=== PATIENT | female | born 1955 | race Caucasian/White ===

== ENCOUNTER → 2018-03-20 | Outpatient (CLI) | payer MEDICARE ==
--- NOTE | 2018-03-20 22:41 | MR ---
EXAMINATION TYPE: MR lumbar spine wo con DATE OF EXAM: 03/20/2018 COMPARISON: NONE HISTORY: back, hip and leg pain x6 months per patient. Lumbar radiculopathy per order. TECHNIQUE: Multiplanar, multisequence imaging of the lumbar spine is performed without IV contrast. FINDINGS: Sagittal images of the lumbar spine show vertebral body heights to appear satisfactory. The re are bilateral pars defects L5 level. There is grade 1 anterolisthesis of L5 on S1 measured 6 mm on sagittal images. Multilevel disc desiccation is present. There is mild to moderate disc space narro wing with vacuum disc phenomenon L5-S1 level, heterogeneous Modic type II endplate changes are seen. There is moderate to advanced disc space narrowing with Modic type II degenerative endplate changes a nteriorly at T11-T12 level. Posterior disc herniations efface the anterior thecal sac at this level o n sagittal images. The conus medullaris is normal in position and signal ending T12-L1 disc space. No significant spurring is seen. Axial images beginning at the T11-T12 level which show [id number] broad disc bulge effacing the anterior thecal sac with mild facet arthropathy bilaterally minimally effacing posterior lateral the sita sac. Bilateral neural foramina are patent. Axial images at T12-L1 show mild facet degenerative changes bilaterally minimally effacing posterior lateral thecal sac. Axial images at the L1-L2, L2-L3, and L3-L4 levels are felt to within normal limits. Axial images at the L4-L5 show mild right greater than left facet degenerative changes bilaterally. T here is mild broad-based posterior disc protrusion seen minimally effacing the anterior thecal sac. B ilateral neural foramina show mild right-sided inferior neural foraminal narrowing. Axial images at L5-S1 level shows spondylolisthesis with pseudodisc herniation. There is mild effacem ent of anterior thecal sac. There is moderate bilateral inferior neural foraminal narrowing. No suspicious retroperitoneal findings are identified. IMPRESSION: Bilateral pars defect L5 level with grade 1 anterolisthesis of L5 on S1 and multilevel de generative changes most prominent at the T11-T12 level as detailed above.
== END | disposition home or self-care (01) ==
LOC: RADMRIMAIN 18:06
PROVIDERS: ATTEND Internal Medicine Rheumatology
DX: M43.17 Spondylolisthesis, lumbosacral region (principal); M47.816 Spondylosis without myelopathy or radiculopathy, lumbar region; M47.815 Spondylosis without myelopathy or radiculopathy, thoracolumbar region
CPT/HCPCS: 72148

== ENCOUNTER → 2018-07-05 | Outpatient (CLI) | payer MEDICARE | END | disposition home or self-care (01) | LOC: LABWHC1 11:35 | PROVIDERS: ATTEND Family Medicine | DX: E87.6 Hypokalemia (principal) | CPT/HCPCS: 36415; 84132 ==

== ENCOUNTER → 2018-07-18 | Outpatient (CLI) | payer MEDICARE ==
[2018-07-18 23:28] LABS: Anion Gap 9.4 mmol/L (4.00-12.00); Calcium 9.5 mg/dL (8.7-10.3); Carbon Dioxide 25.6 mmol/L (21.6-31.8); Potassium 3.7 mmol/L (3.5-5.5)
== END | disposition home or self-care (01) ==
LOC: LABWHC1 15:40
PROVIDERS: ATTEND Family Medicine
DX: Z51.81 Encounter for therapeutic drug level monitoring (principal); Z79.899 Other long term (current) drug therapy
CPT/HCPCS: 36415; 80048

== ENCOUNTER → 2018-07-28 | Outpatient (CLI) | payer MEDICARE ==
--- NOTE | 2018-07-28 12:29 | BD ---
EXAMINATION TYPE: Axial Bone Density DATE OF EXAM: 07/28/2018 COMPARISON: NONE CLINICAL HISTORY: Postmenopausal female. Osteoporosis screening. Height: 63.2 IN Weight: 245 LBS FRAX RISK QUESTIONS: Family History (Parent hip fracture): YES MOTHER History of Fracture in Adulthood: LT WRIST AGE 53 Secondary Osteoporosis: 3. Menopause before 45: YES AGE 34 Rheumatoid Arthritis: YES RISK FACTORS HISTORY OF: History of Wrist Fracture: YES LEFT WRIST AGE 51 Active: YES Diet low in dairy products/other sources of calcium: YES Postmenopausal woman: AGE 34 MEDICATIONS: Additional Medications: MULTI VIT, LOSARTAN, BLOOD PRESSURE MEDS, KRILL OIL, VIT D, TURMERIC, FAMOTID INE, OMEPRAZOLE, TIZANIDINE, NIFEDIPINE, GABAPENTIN, VENTOLIN EXAM MEASUREMENTS: Bone mineral densitometry was performed using the [employer] [employer] [facility]. Bone mineral density as measured about the Lumbar spine is: ----- L1-L4(G/cm2): 1.048 T Score Values are as follows: ----- L2: -1.3 ----- L3: -0.8 ----- L4: -1.1 ----- L1-L4: -1.1 Bone mineral density BASELINE Bone mineral density about the R hip (g/cm2): 0.866 Bone mineral density about the L hip (g/cm2): 0.789 T Score values are as follows: -----R Neck: -1.2 -----L Neck: -1.8 -----R Total: -0.2 -----L Total: -0.7 Bone mineral density BASELINE IMPRESSION: Osteopenia (T Score between -2.5 and -1). There is slightly increased risk of fracture and the patient may be considered for treatment. Re-Screen 2-5 years. NOTE: T-SCORE=SD OF THE YOUNG ADULT MEAN.
--- NOTE | 2018-07-31 11:40 | MM ---
Reason for exam: screening (asymptomatic). Last mammogram was performed 8 years and 4 months ago. History: Patient is postmenopausal. Took estrogen for 2 years. Physical Findings: A clinical breast exam by your physician is recommended on an annual basis and results should be correlated with mammographic findings. MG Screening Mammo w CAD Bilateral CC and MLO view(s) were taken. XCCL view(s) were taken of the right breast. Prior study comparison: April 09, 2010, bilateral digital screening mammogram. December 15, 1999, bilateral screening mammogram. The breast tissue is heterogeneously dense. This may lower the sensitivity of mammography. There is no discrete abnormality. No significant changes when compared with prior studies. ASSESSMENT: Benign, BI-RAD 2 RECOMMENDATION: Routine screening mammogram of both breasts in 1 year.
== END | disposition home or self-care (01) ==
LOC: RADMAMWWP 10:10
PROVIDERS: ATTEND Family Medicine
DX: Z12.31 Encounter for screening mammogram for malignant neoplasm of breast (principal); M85.851 Other specified disorders of bone density and structure, right thigh; M85.852 Other specified disorders of bone density and structure, left thigh; M85.88 Other specified disorders of bone density and structure, other site; Z78.0 Asymptomatic menopausal state
CPT/HCPCS: 77067; 77080

== ENCOUNTER 2018-08-23 10:21 | Day surgery (SDC) | payer MEDICARE ==
[2018-08-21 13:29] VITALS: BMI 38.7
[~2018-08-23 10:21] MED LIST: LACTATED RINGERS 1,000 ML IV SCH
[2018-08-23 10:56] VITALS: TEMP 97.7
[2018-08-23] MEDS ORDERED: PROPOFOL 10 MG/ML 20 ML VIAL IV ONE (11:42)
--- NOTE | 2018-08-23 12:09 | P.PCN ---
Date of Procedure: 08/23/18 Procedure(s) Performed: Brief history: Patient is a pleasant 63-year-old white female, scheduled for an elective upper endoscopy as well as colonoscopy as a part of evaluation of GERD/intermittent dysphagia to solids and screening for colon neoplasia. Her last colonoscopy was 10 years ago. Procedure performed: Esophagogastroduodenoscopy with biopsy Colonoscopy with snare polypectomy Preoperative diagnosis: GERD/intermittent dysphagia to solids Screening for colon cancer Anesthesia: [facility] Procedure: After informed consent was obtained from the patient was brought into the endoscopy unit and IV sedation was administered by anesthesia under continuous monitoring. Initially upper endoscopy was done. The Olympus GF 160 video endoscope was inserted inserted into the mouth and esophagus intubated without any difficulty and was gradually advanced into the stomach and duodenum and carefully examined. The bulb and second part of the duodenum appeared normal. The scope was then withdrawn into the stomach adequately insufflated with air and upon careful examination the antrum and body, cardia and fundus appeared normal. Multiple gastric polyps noted in the body and fundus which were biopsied. The scope was then withdrawn into the esophagus. Small sliding Hiatal hernia noted. The GE junction was located at 36 cm to the incisors. It appeared regular with no erythema erosions or ulcerations. Rest of the esophagus appeared normal. Patient tolerated the procedure well. At this time the patient continued to remain sedation. Initial digital rectal examination was normal. Olympus CF 160 video colonoscope was then inserted into the rectum and gradually advanced to the cecum without any difficulty. Careful examination was performed as the scope was gradually being withdrawn. The prep was excellent. The cecum, ascending colon, transverse colon appeared normal. In the descending colon there was a 7-8 mm sessile polyp removed by snare polypectomy. Rest of the, descending colon, sigmoid colon and rectum appeared normal. Scattered sigmoid diverticulosis Retroflexion was performed in the rectum and no lesions were noted. Patient tolerated the procedure well. Impression: 1. Upper endoscopy revealed small hiatal hernia and multiple gastric polyps 2. Colonoscopy revealed of 7-8 mm descending colon polyp status post polypectomy and scattered sigmoid diverticulosis Recommendations: Findings of this examination were discussed with the patient as well as her family. She was advised to follow with the biopsy results. If the biopsy shows adenoma, she can have a repeat colonoscopy in 5 years.
[2018-08-23 12:36] VITALS: BP 139/68; PULSE 75; RESP 17
== END 2018-08-23 13:27 | disposition home or self-care (01) ==
LOC: ORWHC2ENDO 10:21
PROVIDERS: ATTEND Internal Medicine Gastroenterology
DX: Z12.11 Encounter for screening for malignant neoplasm of colon (principal); K21.9 Gastro-esophageal reflux disease without esophagitis; D12.4 Benign neoplasm of descending colon; K31.7 Polyp of stomach and duodenum; K44.9 Diaphragmatic hernia without obstruction or gangrene; K57.30 Diverticulosis of large intestine without perforation or abscess without bleeding; I10 Essential (primary) hypertension; Z79.899 Other long term (current) drug therapy; Z88.4 Allergy status to anesthetic agent; Z88.0 Allergy status to penicillin
CPT/HCPCS: 88305; 45385; 43239; J2704

== ENCOUNTER → 2019-03-27 | Outpatient (CLI) | payer MEDICARE ==
--- NOTE | 2019-03-28 11:47 | ECHOF ---
Referral Reason:R94.31 Abnormal electrocardiogram [ECG] [EKG] MEASUREMENTS -------- HEIGHT: 165.1 cm WEIGHT: 113.4 kg BP: RVIDd: 4.6 cm (< 3.3) IVSd: 1.3 cm (0.6 - 1.1) LVIDd: 4.9 cm (3.9 - 5.3) LVPWd: 1.6 cm (0.6 - 1.1) IVSs: 2.1 cm LVIDs: 2.9 cm LVPWs: 1.8 cm LAESV Index (A-L): 44.65 ml/m Ao Diam: 3.3 cm (2.0 - 3.7) AV Cusp: 2.3 cm (1.5 - 2.6) LA Diam: 4.8 cm (2.7 - 3.8) EPSS: 1.2 cm MV E Wood: 0.94 m/s MV DecT: 248 ms MV A Wood: 0.73 m/s MV E/A Ratio: 1.29 RAP: 5.00 mmHg RVSP: 48.58 mmHg MV EF SLOPE: 118.79 mm/s (70 - 150) MV EXCURSION: 2.10 cm (> 18.000) FINDINGS -------- Sinus rhythm. This was a technically good study. The left ventricular size is normal. There is moderate concentric left ventricular hypertrophy. O verall left ventricular systolic function is normal with, an EF between 65 - 70 %. Pseudonormal LV filling pattern, consistent with elevated LA pressure. The right ventricle is moderate to severely enlarged. LA is severely dilated >40 ml/m2 RA appears enlarged. Interatrial and interventricular septum intact. The aortic valve is trileaflet and appears structurally normal. There is no evidence of aortic regu rgitation. There is no evidence of aortic stenosis. Moderate mitral regurgitation is present. Moderate tricuspid regurgitation present. There is moderate pulmonary hypertension. The right jennifer tricular systolic pressure, as measured by Doppler, is 48.58mmHg. Trace/mild (physiologic) pulmonic regurgitation. The aortic root size is normal. The inferior vena cava is mildly dilated. There is no pericardial effusion. CONCLUSIONS -------- 1. Sinus rhythm. 2. This was a technically good study. 3. The left ventricular size is normal. 4. There is moderate concentric left ventricular hypertrophy. 5. Overall left ventricular systolic function is normal with, an EF between 65 - 70 %. 6. Pseudonormal LV filling pattern, consistent with elevate LA pressure. 7. The right ventricle is moderate to severely enlarged. 8. LA is severely dilated >40 ml/m2 9. RA appears enlarged. 10. Interatrial and interventricular septum intact. 11. The aortic valve is trileaflet and appears structurally normal. 12. There is no evidence of aortic regurgitation. 13. There is no evidence of aortic stenosis. 14. Moderate mitral regurgitation is present. 15. Moderate tricuspid regurgitation present. 16. There is moderate pulmonary hypertension. 17. The right ventricular systolic pressure, as measured by Doppler, is 48.58mmHg. 18. Trace/mild (physiologic) pulmonic regurgitation. 19. The aortic root size is normal. 20. The inferior vena cava is mildly dilated. 21. There is no pericardial effusion. EVP SALES: Edith Huang RDCS
== END | disposition home or self-care (01) ==
LOC: RADECHMAIN 14:49
PROVIDERS: ATTEND Family Medicine
DX: I08.1 Rheumatic disorders of both mitral and tricuspid valves (principal); R93.1 Abnormal findings on diagnostic imaging of heart and coronary circulation; I27.20 Pulmonary hypertension, unspecified; I86.8 Varicose veins of other specified sites
CPT/HCPCS: 93306

== ENCOUNTER → 2019-04-09 | Outpatient (CLI) | payer MEDICARE ==
--- NOTE | 2019-04-09 12:42 | P.STRESS ---
- Stress Test Note Stress Test Results/Findings: Exam Performed: stress echo exercise Exam Date: 04/09/19 Reason for Exam: CP Height: 5 ft 4 in Weight: 113.398 kg Protocol: STRESS ECHO Stage: III Duration of Exercise: 9.00 Resting Heart Rate: 64 Resting Blood Pressure: 123/60 Maximum Achieved Heart Rate: 130 Maximum Achieved Blood Pressure: 200/49 85% PMHR: 85 100% PMHR: 154 METS: 10.3 Technologist Comment: Stress Test Results/Findings: This is a 64-year-old female with history of hypertension being evaluated for symptoms of chest pain and shortness of breath. Stress data: Baseline EKG showed sinus rhythm with normal [place] interval and QRS duration. Blood pressure at rest is 123/66 with a pulse rate of 64. Patient walked on the [place] protocol for 9 minutes achieving a maximal rate of 1:30 with a blood pressure 200/49. EKGs taken during and after exercise did not reveal any significant changes to suggest ischemia. Occasional PVCs were noted. Echo data: Baseline echo images showed normal wall motion and thickening. Exercise echo images showed augmentation of wall motion and thickening in all the segments. Final impression: #1. Negative stress test #2. Negative stress echo.
--- NOTE | 2019-04-10 11:36 | ECHOS ---
Stress Test Results/Findings: Exam Performed: stress echo exercise Exam Date: 04/09/19 Reason for Exam: CP Height: 5 ft 4 in Weight: 113.398 kg Protocol: STRESS ECHO Stage: III Duration of Exercise: 9.00 Resting Heart Rate: 64 Resting Blood Pressure: 123/60 Maximum Achieved Heart Rate: 130 Maximum Achieved Blood Pressure: 200/49 85% PMHR: 85 100% PMHR: 154 METS: 10.3 Technologist Comment: Stress Test Results/Findings: This is a 64-year-old female with history of hypertension being evaluated for symptoms of chest pain and shortness of breath. Stress data: Baseline EKG showed sinus rhythm with normal PA interval and QRS duration. Blood pressure at rest is 123/66 with a pulse rate of 64. Patient walked on the [place] protocol for 9 minutes achieving a maximal rate of 1:30 with a blood pressure 200/49. EKGs taken during and after exercise did not reveal any significant changes to suggest ischemia. Occasional PVCs were noted. Echo data: Baseline echo images showed normal wall motion and thickening. Exercise echo images showed augmentation of wall motion and thickening in all the segments. Final impression: #1. Negative stress test #2. Negative stress echo. TRINO
== END | disposition home or self-care (01) ==
LOC: RADNMMAIN 08:53
PROVIDERS: ATTEND Family Medicine
DX: R07.9 Chest pain, unspecified (principal)
CPT/HCPCS: 93351

== ENCOUNTER → 2019-04-23 | Outpatient (CLI) | payer MEDICARE ==
[2019-04-23 11:28] LABS: Basophils % (A) 0 %; Eosinophils # (A) 0.2 k/uL (0-0.7); Eosinophils % (A) 3 %; HCT 43.2 % (34.0-46.0); HGB 14.1 gm/dL (11.4-16.0); Lymphocytes # (A) 1.3 k/uL (1.0-4.8); Lymphocytes % (A) 16 %; MCHC 32.6 g/dL (31.0-37.0); MCV 86.1 fL (80.0-100.0); Monocytes # (A) 0.4 k/uL (0-1.0); Monocytes % (A) 5 %; Neutrophils # (A) 6.3 k/uL (1.3-7.7); Neutrophils % (A) 74 %; Platelet Count 243 k/uL (150-450); RBC 5.02 m/uL (3.80-5.40); RDW 12.7 % (11.5-15.5); WBC 8.5 k/uL (3.8-10.6)
--- NOTE | 2019-04-23 11:48 | XR ---
EXAMINATION TYPE: XR chest 2V DATE OF EXAM: 04/23/2019 COMPARISON: 02/14/2013 HISTORY: Right-sided chest pain for 3 days TECHNIQUE: Frontal and lateral views of the chest are obtained. FINDINGS: New diffuse interstitial prominence. There is no focal air space opacity, pleural effusion , or pneumothorax seen. The cardiac silhouette size is within normal limits. The osseous structure s are intact. Postsurgical change of the right shoulder. IMPRESSION: There is new diffuse interstitial prominence favored to represent mild degree interstiti al edema. Atypical pneumonia or bronchitis could also have this appearance.
[2019-04-23 14:00] LABS: Erythrocyte Sedimentation Rate 6 mm/hr (0-20)
[2019-04-23 18:20] LABS: Albumin 4.4 g/dL (3.80-4.90); Albumin/Globulin Ratio 2.93 (1.60-3.17); Anion Gap 7.3 mmol/L (4.00-12.00); BUN/Creat Ratio 16.25 Ratio (12.00-20.00); C Reactive Protein 1.2 mg/dL (0.0-0.8); Carbon Dioxide 24.7 mmol/L (21.6-31.8); Globulin 1.5 g/dL (1.6-3.3); Potassium 4.5 mmol/L (3.5-5.5); Total Bilirubin 0.6 mg/dL (0.3-1.2); Total Protein 5.9 g/dL (6.2-8.2)
== END | disposition home or self-care (01) ==
LOC: LABWHC1 10:04
PROVIDERS: ATTEND Nurse Practitioner
DX: J84.9 Interstitial pulmonary disease, unspecified (principal); K50.90 Crohn's disease, unspecified, without complications
CPT/HCPCS: 36415; 71046; 80053; 83630; 83993; 85025; 85652; 86140; 87045; 87046

== ENCOUNTER → 2019-05-01 | Outpatient (CLI) | payer MEDICARE ==
--- NOTE | 2019-05-01 13:56 | XR ---
EXAMINATION TYPE: XR chest 2V DATE OF EXAM: 05/01/2019 COMPARISON: 04/23/2019 TECHNIQUE: PA and lateral views submitted. HISTORY: Shortness of breath FINDINGS: The lungs are clear and there is no pneumothorax, pleural effusion, or focal pneumonia. Heart is en larged and is subsegmental changes at both lung bases. Atherosclerotic change aorta. Postsurgical corinne nge involving the right shoulder. IMPRESSION: 1. Interstitium is slightly increased from the prior exam correlate for interstitial pneumonitis or v enous congestion with basilar atelectasis versus pneumonia.
== END | disposition home or self-care (01) ==
LOC: RADXRMAIN 13:20
PROVIDERS: ATTEND Family Medicine
DX: R06.02 Shortness of breath (principal)
CPT/HCPCS: 71046

== ENCOUNTER → 2019-06-04 | Outpatient (CLI) | payer MEDICARE ==
--- NOTE | 2019-06-04 22:02 | CT ---
EXAMINATION TYPE: CT chest w con DATE OF EXAM: 06/04/2019 COMPARISON: Chest x-ray May 08, 2019 and older x-rays. HISTORY: difficulty breathing CT DLP: 560.3 mGycm. Automated Exposure Control for Dose Reduction was Utilized. TECHNIQUE: CT scan of the thorax is performed following with IV Contrast, patient injected with 100 mL of Isovue 300. FINDINGS: LUNGS: There is right lung 8 x 6 mm nodule axial image 24. No suspicious focal consolidation or groun dglass opacity is seen bilaterally. There is no pleural effusion or pneumothorax seen bilaterally. The tracheobronchial tree is patent. MEDIASTINUM: There are no greater than 1 cm hilar or mediastinal lymph nodes. Small to tiny pericardi al effusion anterior-inferior aspect axial image 38. Cardiomegaly with moderate left atrial dilatati on OTHER: A few simple-appearing thin-walled cysts throughout the superior left hepatic lobe are present . Cholecystectomy clips are seen. Moderate multilevel spurring in the spine. There is disc space narr owing and endplate sclerosis anterior T11-T12 level. IMPRESSION: No significant acute or chronic pulmonary process. There is 8 x 6 mm right midlung pulmon didi nodule noted. Follow-up advised as per Fleischner Society recommendations. low-risk patients: CT at 6-12 months, then consider CT at 18-24 months high-risk patients: CT at 6-12 months, then CT at 18-24 months
== END ==
LOC: RADCTMAIN 17:26
PROVIDERS: ATTEND Internal Medicine Critical Care Medicine
DX: R91.1 Solitary pulmonary nodule (principal)
CPT/HCPCS: 82565; 84520; 71260; 36415; Q9967

== ENCOUNTER → 2019-07-23 | Outpatient (CLI) | payer MEDICARE ==
[2019-07-23 14:20] LABS: HCT 40.3 % (34.0-46.0); MCH 30.6 pg (25.0-35.0); MCHC 32.2 g/dL (31.0-37.0); MCV 95.3 fL (80.0-100.0); Mean Platelet Volume 8.5; Platelet Count 177 k/uL (150-450); RBC 4.23 m/uL (3.80-5.40)
[2019-07-23 14:47] LABS: Creatine Kinase MB 1.1 ng/mL (0.0-2.4); Troponin I <0.012 ng/mL (0.000-0.034)
[2019-07-23 21:03] LABS: Albumin 4.3 g/dL (3.80-4.90); Albumin/Globulin Ratio 3.31 (1.60-3.17); Anion Gap 8.6 mmol/L (4.00-12.00); BUN/Creat Ratio 22.5 Ratio (12.00-20.00); Calcium 9.3 mg/dL (8.7-10.3); Carbon Dioxide 25.4 mmol/L (21.6-31.8); Globulin 1.3 g/dL (1.6-3.3); Non-African American GFR(CKD) 76.8 (60.0-200.0); Potassium 4.3 mmol/L (3.5-5.5); Total Bilirubin 0.6 mg/dL (0.3-1.2); Total Protein 5.6 g/dL (6.2-8.2)
== END | disposition home or self-care (01) ==
LOC: LABWHC1 12:21
PROVIDERS: ATTEND Family Medicine
DX: R06.02 Shortness of breath (principal)
CPT/HCPCS: 36415; 80053; 82553; 83615; 83735; 83880; 84484; 85027; 85379

== ENCOUNTER → 2019-08-06 | Day surgery (SDC) | payer MEDICARE ==
[2019-08-02 10:21] VITALS: BMI 42.9
[~2019-08-06] MED LIST changes: +ALPRAZolam 0.25 MG TAB PO ONE; +ALPRAZolam 0.25 MG TAB PO PRN; +ALPRAZolam 0.5 MG TAB PO PRN; +ASPIRIN 325 MG TAB PO ONE; +ASPIRIN 325 MG TAB PO STA; +ATENOLOL 50 MG TAB PO SCH; +ATORVASTATIN 80 MG TAB PO STA; +CHOLECALCIFEROL 1,000 UNIT TAB PO SCH; +FAMOTIDINE 20 MG TAB PO SCH; +GABAPENTIN 300 MG CAP PO SCH; +HEPARIN SODIUM 1,000 UN/ML (10ML VL) ONE; +HYDROCHLOROTHIAZIDE 25 MG TAB PO SCH; +IOPAMIDOL-370 125ML BTL INJ ONE; -LACTATED RINGERS 1,000 ML IV SCH; +LIDOCAINE 1% INJ 10MG/ML (20 ML MDV) ONE; +MULTIVITAMINS, THERA 1 EACH TAB PO SCH; +NITROGLYCERIN SL TABS 0.4 MG TAB SUBLINGUAL PRN; +NON FORMULARY DRUG (Losartan Potassium [Cozaar] 100 MG) PO SCH; +PANTOPRAZOLE 40 MG TABLET PO SCH; +RX INFO: IV CONTRAST WAS GIVEN 1 EACH MISC MISCELLANE PRN; +SODIUM CHLORIDE 0.9% 1,000 ML IV ONE; +SODIUM CHLORIDE 0.9% 1,000 ML IV SCH; +SODIUM CHLORIDE 0.9% 1,000 ML in EMPTY BAG 1 BAG IV ONE; +VERAPAMIL 2.5 MG/ML 2 ML AMP ONE; +VERAPAMIL SYRINGE (5 MG/10 ML) INTRAARTER ONE; +fentaNYL (PF) 50 MCG/ML 2 ML AMP IV ONE; +fentaNYL (PF) 50 MCG/ML 2 ML AMP ONE; +hydrALAZINE HCL 50 MG TAB PO SCH; +sulfaSALAzine 500 MG TAB PO SCH
[2019-08-06 07:17] VITALS: TEMP 98.4
[2019-08-06] MEDS: LIDOCAINE 1% INJ 10MG/ML (20 ML MDV) SQ ONE ×2 (07:45→07:50)
[2019-08-06 08:25] LABS: O2 Sat Blood Gas 76.5 %
[2019-08-06 08:27] LABS: O2 Sat Blood Gas 73.9 %
--- NOTE | 2019-08-06 09:23 | LTR ---
DATE OF SERVICE: 08/06/2019 RE: Carla Gates Dear Dr. Sommer: I had the pleasure to perform cardiac catheterization on Mrs. Gates at [facility] on August 06, 2019 and a full copy of the procedure note will be forwarded to you. In brief, she was found to have no evidence of obstructive coronary artery disease with normal pulmonary pressure and based on those findings, I recommend continue medical therapy with aggressive coronary risk modifications being initiated. Thank you again for allowing me to participate in this patient's personal care. Please feel free to call for any questions. Sincerely yours, MD BRITNI FreemanL / HARSHAN: [id number] /
[2019-08-06 09:31] VITALS: RESP 18
--- NOTE | 2019-08-06 09:34 | CC ---
CARDIAC CATHETERIZATION REPORT Mrs. Banegas is a 64-year-old female with known history of hypertension who has been complaining of severe progressive dyspnea on exertion over the last six months. She underwent an echocardiogram and a stress test that showed no evidence of significant abnormalities. She subsequently was seen by Dr. Prince and her pulmonary workup was unremarkable. In view of her persistent severe progressive dyspnea, recommendation made regarding left heart catheterization. The procedures, risks and complication were discussed with the patient who is in full understanding and agreement. 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 Using Xylocaine anesthesia and Seldinger technique, a 6-Beninese sheath was introduced in the right radial artery and an 8-Beninese sheath in the right femoral vein. Right and left heart catheterization performed using 5-Beninese 3.5 bend right and left Claire catheter. Multiple views of the coronary artery including hemiaxial views were obtained/ Following that. 5-Beninese tight pigtail catheter was introduced in the left ventricle and pressures were calculated. Following that, catheters were removed. Following that, right heart catheterization was performed using [place] catheter, multiple pressure and samples were obtained. Cardiac output by thermodilution was calculated. Following that, the right radial sheath was removed. Hemostasis was obtained with deployment of a TR band. The right femoral vein sheath was removed and hemostasis was obtained with compression of the right groin. There was no immediate complication. Patient is returned to her room in stable condition. Of note, the patient received 5000 units of intravenous heparin as well as intra-arterial verapamil. HEMODYNAMICS: Pulmonary artery saturation was 67%. Right atrial saturation 74%. Arterial saturation 92%. Cardiac output by Reba 7.4 L/minute and by thermodilution of 8.3 L/L per minute. Pulmonary artery systolic pressure of 38 with a diastolic cough of 18 and a mean of 25 mmHg. Pulmonary capillary wedge pressure A-wave of 14, V-wave 15 with a mean of 50 mmHg. Right ventricle systolic pressure of 40 with an end-diastolic of 12, a right atrium A-wave of 6, V-wave of 6 with a mean of 6 mmHg. There was no gradient across the aortic valve. Left ventricular end-diastolic pressure was 8 mm her Hg. CORONARIES: Left main. This is a short size vessel bifurcating into left circumflex, left anterior descending artery, left main coronary artery has no evidence of high- grade stenosis/ LEFT ANTERIOR DESCENDING ARTERY: This is a large-sized vessel, reaching toward the apex with a wraparound apex segment giving rise to a large diagonal branch. The anterior descending artery as well as branches have no evidence of obstructive disease. LEFT CIRCUMFLEX: This is a nondominant vessel, giving rise to a large obtuse marginal branch. The left circumflex as well as branches have no evidence of obstructive disease. RIGHT CORONARY ARTERY: This is a dominant moderately sized vessel, bifurcating distally into PDA and posterolateral segment and branches. The right coronary artery as well as branches have no evidence of obstructive coronary artery disease. LEFT VENTRICULOGRAM: Left ventriculogram was not performed. CONCLUSION: 1. Normal coronary arteries/. 2. No evidence of pulmonary hypertension. RECOMMENDATION: In view of finding anatomy, I do not see any clear evidence to suggest a cardiac etiology to her severe dyspnea on exertion. In view of this finding, I recommend continue medical therapy with aggressive coronary risk modifications being initiated. Those findings and recommendation were discussed with the patient and her family who are in full understanding and agreement. Duration of procedure is 33 minutes. MMODL / IJN: [id number] /
[2019-08-06 14:44] VITALS: BP 125/59; PULSE 60
== END | disposition home or self-care (01) ==
LOC: CATHCVL 06:24
PROVIDERS: ATTEND Internal Medicine Interventional Cardiology
DX: R06.09 Other forms of dyspnea (principal); R07.89 Other chest pain; I10 Essential (primary) hypertension; R60.0 Localized edema; E66.9 Obesity, unspecified; Z68.41 Body mass index [BMI] 40.0-44.9, adult; Z79.899 Other long term (current) drug therapy; Z88.0 Allergy status to penicillin
CPT/HCPCS: 93453; 85018; 82810; C1894 ×2; C1769 ×2; J2001; J3010; J1644; Q9967; 93460

== ENCOUNTER → 2019-10-23 | Outpatient (CLI) | payer MEDICARE ==
[2019-10-23 16:00] LABS: Anion Gap 8.2 mmol/L (4.00-12.00); BUN/Creat Ratio 17.5 Ratio (12.00-20.00); Calcium 9.4 mg/dL (8.7-10.3); Carbon Dioxide 24.8 mmol/L (21.6-31.8); Non-African American GFR(CKD) 76.8 (60.0-200.0); Potassium 4.3 mmol/L (3.5-5.5)
== END | disposition home or self-care (01) ==
LOC: LABWHC1 10:40
PROVIDERS: ATTEND Internal Medicine Interventional Cardiology
DX: I10 Essential (primary) hypertension (principal)
CPT/HCPCS: 36415; 80048

== ENCOUNTER → 2019-11-27 | Outpatient (CLI) | payer MEDICARE | END | disposition home or self-care (01) | LOC: CPPFTMAIN 07:34 | PROVIDERS: ATTEND Internal Medicine Critical Care Medicine | DX: R06.09 Other forms of dyspnea (principal) | CPT/HCPCS: 94060; 94726; 94729 ==

== ENCOUNTER → 2020-01-09 | Outpatient (CLI) | payer MEDICARE ==
--- NOTE | 2020-01-09 13:37 | US ---
EXAMINATION TYPE: US thyroid st tissue head/neck DATE OF EXAM: 01/09/2020 COMPARISON: NONE CLINICAL HISTORY: E04.1 Thyroid nodule. Pt states nodules visualized on outside MRI, pt has previous CT 2019 here GLAND SIZE: Right Lobe: 5.6 x 2.6 x 2.5 cm Overall Parenchyma: heterogenous Left Lobe: 5.4 x 2.5 x 1.9 cm Overall Parenchyma: heterogeneous Isthmus Thickness: 0.6 cm NODULES RIGHT: # of nodules measured on right: 1 1. 1.7 X 1.7 x 1.3 cm isoechoic solid nodule at the mid pole with poorly defined margins; This nod ule is wider than tall and shows no intranodular vascularity. Prior size: No prior LEFT: # of nodules measured on left: 1 1. 1.4 X 1.1 x 1.0 cm isoechoic solid nodule at the lower pole with poorly defined margins; This n odule is wider than tall and shows intranodular vascularity. Prior size: No prio Bilateral neck scanned, no evidence of lymphadenopathy. Enlarged thyroid bilaterally. Innumerable nod ules bilaterally, largest appearing on each side measured IMPRESSION: 1. Thyromegaly correlate for thyroiditis. 2. Bilateral thyroid nodules. The largest are measured above.
[2020-01-09 14:13] LABS: Albumin 4.4 g/dL (3.5-5.0); Basophils % (A) 1 %; Calcium 9.8 mg/dL (8.4-10.2); Eosinophils # (A) 0.3 k/uL (0-0.7); Eosinophils % (A) 4 %; HCT 41.7 % (34.0-46.0); HGB 13.3 gm/dL (11.4-16.0); Lymphocytes # (A) 1.4 k/uL (1.0-4.8); Lymphocytes % (A) 20 %; MCH 29.9 pg (25.0-35.0); MCHC 31.8 g/dL (31.0-37.0); Mean Platelet Volume 8.8; Monocytes # (A) 0.5 k/uL (0-1.0); Monocytes % (A) 7 %; Neutrophils # (A) 4.9 k/uL (1.3-7.7); Neutrophils % (A) 67 %; Platelet Count 215 k/uL (150-450); RBC 4.43 m/uL (3.80-5.40); RDW 13.7 % (11.5-15.5); Total Bilirubin 0.9 mg/dL (0.2-1.3); Total Protein 6.4 g/dL (6.3-8.2); WBC 7.3 k/uL (3.8-10.6)
[2020-01-09 14:29] LABS: Appearance,Urine Clear (Clear); Bacteria,Urine Rare /hpf; Bilirubin,Urine Negative (Negative); Blood,Urine Negative (Negative); Color,Urine Yellow; Glucose,Urine (UA) Negative (Negative); Hyaline Casts,Urine 1 /lpf (0-2); Ketones,Urine Negative (Negative); Leukocyte Esterase,Urine Moderate (Negative); Mucus,Urine Occasional /hpf; Nitrite,Urine Negative (Negative); PH, Urine 5.5 (5.0-8.0); Protein,Urine Negative (Negative); RBC,Urine 2 /hpf (0-5); Squamous Epithelial Cell,Urine 3 /hpf (0-4); Urobilinogen,Urine <2.0 mg/dL (<2.0); WBC,Urine 2 /hpf (0-5)
[2020-01-09 22:48] LABS: Hemoglobin A1C 4.2 % (4.0-6.0)
== END | disposition home or self-care (01) ==
LOC: RADUSWWP 12:42
PROVIDERS: ATTEND Family Medicine
DX: E04.2 Nontoxic multinodular goiter (principal); Z01.812 Encounter for preprocedural laboratory examination; M25.562 Pain in left knee; Z13.1 Encounter for screening for diabetes mellitus; M17.12 Unilateral primary osteoarthritis, left knee
CPT/HCPCS: 76536; 80053; 81001; 83036; 85025; 85610; 87070; 87086

== ENCOUNTER → 2020-02-08 | Outpatient (CLI) | payer MEDICARE ==
[2020-02-08 13:38] LABS: African American GFR (CKD) >90 (>60 ml/min/1.73 sqM); Blood Urea Nitrogen 21 mg/dL (7-17); Non-African American GFR(CKD) 79 (>60 ml/min/1.73 sqM)
--- NOTE | 2020-02-08 15:01 | CT ---
EXAMINATION TYPE: CT chest w con DATE OF EXAM: 02/08/2020 COMPARISON: 06/04/2019 HISTORY: Lung nodule CT DLP: 819.3 mGycm Automated exposure control for dose reduction was used. CONTRAST: CT scan of the chest is performed with IV Contrast, patient injected with 100 mL of Isovue 300. FINDINGS: LUNGS: Stable pulmonary nodule right upper lobe image 25 measuring 8 mm versus 8 mm previous. No alexandra tional pulmonary nodules are evident. No additional nodules evident. There is no pleural effusion or pneumothorax seen. The tracheobronchial tree is patent. MEDIASTINUM: There are no greater than 1 cm hilar or mediastinal lymph nodes. No pericardial effusi on is seen. Thoracic aorta is of normal caliber. The heart is not enlarged. Small hiatal hernia note d. UPPER ABDOMEN: Multiple hepatic cysts redemonstrated. OTHER: No additional significant abnormality is seen. IMPRESSION: 1. Stable right upper lobe pulmonary nodule. Follow-up advised as per Fleischner Society recommendati ons. low-risk patients: CT at 6-12 months, then consider CT at 18-24 months high-risk patients: CT at 6-12 months, then CT at 18-24 months
== END | disposition home or self-care (01) ==
LOC: RADCTMAIN 12:56
PROVIDERS: ATTEND Internal Medicine Critical Care Medicine
DX: R91.1 Solitary pulmonary nodule (principal); Z88.8 Allergy status to other drugs, medicaments and biological substances; Z91.048 Other nonmedicinal substance allergy status
CPT/HCPCS: 82565; 84520; 71260; 36415; Q9967

== ENCOUNTER → 2020-06-16 | Outpatient (CLI) | payer MEDICARE ==
--- NOTE | 2020-06-16 12:29 | MR ---
EXAMINATION TYPE: MR lumbar spine wo con DATE OF EXAM: 06/16/2020 COMPARISON: Lumbar MRI 03/20/2018 images are not available HISTORY: Low Back Pain TECHNIQUE: Multiplanar, multisequence images of the lumbar spine were acquired. L1-L2: Normal disc appearance without desiccation. No herniation, protrusion or disc bulging. No ca nal stenosis is present. Foramina are patent bilaterally. L2-L3: Normal disc appearance without desiccation. No herniation, protrusion or disc bulging. No ca nal stenosis is present. Foramina are patent bilaterally. L3-L4: Normal disc appearance without desiccation. No herniation, protrusion or disc bulging. No ca nal stenosis is present. Foramina are patent bilaterally. There is some facet arthropathy change wit h hypertrophy ligamentum flavum causing some posterior lateral mass effect on the thecal sac L4-L5: Circumferential extension of disc material results in some foraminal encroachment on the right , there is facet arthropathy present with hypertrophy ligamentum flavum causing some posterior latera l mass effect on the thecal sac L5-S1: Bilateral foraminal encroachment is present due to the listhesis. There is no disc herniation. ] Discogenic marrow signal changes are present. Lumbar segments are showing bilateral spondylolysis at L5 with anterolisthesis grade 1 L5-S1, there i s associated loss of disc height signal. No paraspinal masses are identified. Conus medullaris has a normal appearance. Lumbar vertebral bodies show preserved height. T11-T12 shows degenerative disc c hange as described in prior report. IMPRESSION: Bilateral spondylolysis L5 with spondylolisthesis, bilateral foraminal encroachment. Multilevel facet arthropathy. Generative disc disease.
== END | disposition home or self-care (01) ==
LOC: RADMRIMAIN 07:59
PROVIDERS: ATTEND Orthopaedic Surgery Orthopaedic Surgery of the Spine
DX: M43.16 Spondylolisthesis, lumbar region (principal); M47.816 Spondylosis without myelopathy or radiculopathy, lumbar region; M51.86 Other intervertebral disc disorders, lumbar region
CPT/HCPCS: 72148

== ENCOUNTER → 2020-11-28 | Outpatient (CLI) | payer MEDICARE ==
--- NOTE | 2020-11-29 04:14 | MR ---
EXAMINATION TYPE: MR cervical spine wo con DATE OF EXAM: 11/28/2020 COMPARISON: None HISTORY: Numbness in both hands, headaches. Multiplanar multiecho imaging of the cervical spine was performed without contrast The cervical vertebra have fairly normal alignment. There is no significant disc space narrowing. The re is small posterior disc bulging at C4-5 and C5-6 and C6-7. There is developmentally large spinal c anal and no spinal stenosis. The canal measures 9.3 mm at the narrowest point which is C5-6. There is a larger posterior disc herniation at C5-6. Cervical spinal cord has normal signal pattern. There is no edema. There is no spinal stenosis. Brainstem is intact. There is no compression fracture. The fa cet joints are intact. There is no evidence of cervical paraspinal mass. The neural foramina are fair ly well-maintained. The skull base is intact IMPRESSION: Multilevel mild posterior disc bulging and herniation as above. No spinal stenosis. No fracture.
== END | disposition home or self-care (01) ==
LOC: RADMRIMAIN 21:29
PROVIDERS: ATTEND Orthopaedic Surgery Orthopaedic Surgery of the Spine
DX: M48.02 Spinal stenosis, cervical region (principal); M50.223 Other cervical disc displacement at C6-C7 level
CPT/HCPCS: 72141

== ENCOUNTER → 2020-12-16 | Outpatient (CLI) | payer MEDICARE ==
--- NOTE | 2020-12-17 14:50 | MM ---
Reason for exam: screening (asymptomatic). Last mammogram was performed 2 years and 5 months ago. History: Patient is postmenopausal and history of other cancer. Took estrogen for 2 years. Physical Findings: A clinical breast exam by your physician is recommended on an annual basis and results should be correlated with mammographic findings. MG 3D Screening Mammo W/Cad Bilateral CC and MLO view(s) were taken. Prior study comparison: July 28, 2018, bilateral MG screening mammo w CAD. April 09, 2010, bilateral digital screening mammogram. There are scattered fibroglandular densities. Finding: There is a 4 mm equal density (isodense), indistinct irregular mass located 4 cm from the nipple in the 5 o'clock position of the right breast. This has enlarged from previous. New finding since July 28, 2018. These results were verbally communicated with the patient and result sheet given to the patient on 12/16/20. ASSESSMENT: Incomplete: need additional imaging evaluation, BI-RAD 0 RECOMMENDATION: Special view mammogram of the right breast. If lesion persists on supplemental views, image directed ultrasound is recommended. [facility] will attempt to contact patient to return for supplemental views and ultrasound if indicated.
== END | disposition home or self-care (01) ==
LOC: RADMAMWWP 07:34
PROVIDERS: ATTEND Family Medicine
DX: Z12.31 Encounter for screening mammogram for malignant neoplasm of breast (principal); Z78.0 Asymptomatic menopausal state; Z85.9 Personal history of malignant neoplasm, unspecified
CPT/HCPCS: 77063; 77067

== ENCOUNTER → 2021-01-07 | Outpatient (CLI) | payer MEDICARE ==
--- NOTE | 2021-01-07 08:35 | MM ---
Reason for exam: additional evaluation requested from abnormal screening. Last mammogram was performed 1 month ago. History: Patient is postmenopausal and history of other cancer. Took estrogen for 2 years. Physical Findings: Nurse did not find any significant physical abnormalities on exam. MG 3D Work Up W/Cad RT Spot compression CC, spot compression MLO, and LM view(s) were taken of the right breast. Prior study comparison: December 16, 2020, bilateral MG 3d screening mammo w/cad. July 28, 2018, bilateral MG screening mammo w CAD. There are scattered fibroglandular densities. There is an intramammary lymph node in the retro right beast which isn't significantly changed since 2019. These results were verbally communicated with the patient and result sheet given to the patient on 01/07/21. ASSESSMENT: Benign, BI-RAD 2 RECOMMENDATION: Return to routine screening mammogram schedule for both breasts. Back on schedule.
--- NOTE | 2021-01-07 09:26 | BD ---
EXAMINATION TYPE: Axial Bone Density DATE OF EXAM: 01/07/2021 COMPARISON: 07.28.2018 CLINICAL HISTORY: 65 YR OLD FEMALE.....ICD-10 CODE: Z78.0 POST MENOPAUSAL Height: 63.2 Weight: 255 FRAX RISK QUESTIONS: History of Fracture in Adulthood: YES Secondary Osteoporosis: YES 3. Menopause before 45: YES RISK FACTORS HISTORY OF: LT ARM/WRIST AN ADULT History of Wrist Fracture: LT Postmenopausal woman: YES, AT AGE 38 TOTAL HYST Take estrogen and/or progesterone medications: YES, IN THE PAST FOR COUPLE YRS Hyperparathyroidism: NO Adrenal Insufficiency: NO MEDICATIONS: Additional Medications: BP MEDS, REFLUX MEDS, MULTIVITAMIN Additional History: HYPERTENSION, REFLUX, OSTEOARTHRITIS EXAM MEASUREMENTS: Bone mineral densitometry was performed using the [employer]. Bone mineral density as measured about the Lumbar spine is: ----- L1-L4(G/cm2): 1.126 T Score Values are as follows: ----- L1: -0.8 ----- L2: -0.7 ----- L3: -1.0 ----- L4: 0.6 ----- L1-L4: -0.5 Bone mineral density has: Increased 6.9% since study of: 07.28.2018 Bone mineral density about the R hip (g/cm2): 1.007 Bone mineral density about the L hip (g/cm2): 1.002 T Score values are as follows: -----R Neck: -1.1 -----L Neck: -1.5 -----R Total: 0.0 -----L Total: 0.0 Bone mineral density has: Increased 5.5% since study of: 07.28.2018 FRAX%s: THERE IS A 22.2% CHANCE FOR A MAJOR OSTEOPOROTIC FX AND A 2.4% FOR HIP.....PROBABILITY FO R FX IN 10 YRS TIME IMPRESSION: Normal bone mineral density. NOTE: T-SCORE=SD OF THE YOUNG ADULT MEAN.
== END | disposition home or self-care (01) ==
LOC: RADBDWWP 07:11
PROVIDERS: ATTEND Family Medicine
DX: N64.89 Other specified disorders of breast (principal); Z78.0 Asymptomatic menopausal state
CPT/HCPCS: 77080; 77065; G0279; 77061

== ENCOUNTER → 2021-03-24 | Outpatient (CLI) | payer MEDICARE ==
--- NOTE | 2021-03-25 05:34 | CT ---
EXAMINATION TYPE: CT chest w con DATE OF EXAM: 03/24/2021 COMPARISON: Chest CT February 07, 2022 study June 04, 2019 HISTORY: Lung nodule, pt reporting no issues CT DLP: 779 mGycm. Automated Exposure Control for Dose Reduction was Utilized. TECHNIQUE: CT scan of the thorax is performed following with IV Contrast, patient injected with 100 mL of Isovue 300. FINDINGS: LUNGS: There is stable right lung 8 x 6 mm nodule axial image 23. No new greater than 5 mm pulmonary nodules or masses. Mild bibasilar linear scarring and/or atelectasis. There is no pleural effusion o r pneumothorax seen bilaterally. The tracheobronchial tree is patent. MEDIASTINUM: There are no new greater than 1 cm hilar or mediastinal lymph nodes. No significant sherlyn cardial effusion. Heart size upper limits of normal. Mild to moderate biatrial dilatation noted. Smal l size hiatal hernia redemonstrated. OTHER: A few simple-appearing thin-walled cysts throughout the superior left hepatic lobe are redemon strated. Cholecystectomy clips are redemonstrated. Moderate multilevel spurring in the spine. There i s disc space narrowing and endplate sclerosis anterior T11-T12 level redemonstrated. IMPRESSION: Stable 8 x 6 mm right mid lung nodule from May 2019 consistent with benign etiology. No new greater than 5 mm nodules.
== END | disposition home or self-care (01) ==
LOC: RADCTMAIN 15:39
PROVIDERS: ATTEND Internal Medicine Critical Care Medicine
DX: R91.1 Solitary pulmonary nodule (principal)
CPT/HCPCS: 82565; 84520; 71260; 36415; Q9967

== ENCOUNTER → 2021-07-13 | Outpatient (CLI) | payer MEDICARE ==
--- NOTE | 2021-07-13 14:19 | US ---
EXAMINATION TYPE: US thyroid st tissue head/neck DATE OF EXAM: 07/13/2021 COMPARISON: US Thyroid 2019 CLINICAL HISTORY: E04.2 MULTINODULAR GOITER. GLAND SIZE: Right Lobe: 5.8 x 2.8 x 2.2 cm Overall Parenchyma: heterogenous Left Lobe: 5.0 x 2.4 x 1.8 cm Overall Parenchyma: heterogeneous Isthmus Thickness: 0.47 cm NODULES RIGHT: # of nodules measured on right: 1 1. 1.7 X 1.4 x 1.2 cm, mid mid, solid or almost completely solid, hypoechoic nodule, which is wider than tall, with smooth margins, without echogenic foci. Prior size: 1.7 x 1.7 x 1.3 cm LEFT: # of nodules measured on left: 0 Multiple nodules seen bilaterally; left thyroid unable to delineate for measurable borders ISTHMUS: # of nodules measured in the isthmus: 0 Bilateral neck scanned, no evidence of lymphadenopathy. Markedly heterogeneous thyroid gland measuring mildly enlarged in size is redemonstrated with stable slightly hyperechoic 1.7 cm posterior right thyroid nodule redemonstrated. IMPRESSION: As above. No suspicious or enlarging greater than 1 cm solid nodules.
[2021-07-13 19:31] LABS: T4, Free (Free Thyroxine) 1.2 ng/dL (0.800-1.800)
== END | disposition home or self-care (01) ==
LOC: RADUSWWP 13:30
PROVIDERS: ATTEND Internal Medicine Endocrinology, Diabetes & Metabolism
DX: E04.1 Nontoxic single thyroid nodule (principal)
CPT/HCPCS: 36415; 76536; 84439; 84443

== ENCOUNTER → 2021-12-16 | Outpatient (CLI) | payer MEDICARE ==
[2021-12-16 11:23] LABS: % Iron Saturation 17.53 (12.00-45.00); ALT 21 U/L (8-44); AST 15 U/L (13-35); African American GFR (CKD) 87.8 (60.0-200.0); Albumin 4.2 g/dL (3.8-4.9); Albumin/Globulin Ratio 2.47 (1.60-3.17); Alkaline Phosphatase 67 U/L (41-126); BUN/Creat Ratio 21.88 Ratio (12.00-20.00); Blood Urea Nitrogen 17.5 mg/dL (9.0-27.0); Calcium 9.4 mg/dL (8.7-10.3); Carbon Dioxide 25.3 mmol/L (20.0-27.5); Chloride 107 mmol/L (96-109); Chol/HDL Ratio 3.81 Ratio; Globulin 1.7 g/dL (1.6-3.3); Glucose 140 mg/dL (70-110); Iron 59 ug/dL (50-170); LDL Cholesterol,Calculated 132.8 mg/dL (0.0-131.0); Non-African American GFR(CKD) 75.8 (60.0-200.0); Potassium 4.3 mmol/L (3.5-5.5); Sodium 140 mmol/L (135-145); Total Iron Binding Capacity 336 ug/dL (228-460); Total Protein 5.9 g/dL (6.2-8.2); VLDL Calculation 19.24 mg/dL (5.00-40.00)
[2021-12-16 14:58] LABS: Basophils # (A) 0.02 X 10*3/uL (0.00-0.10); Basophils % (A) 0.4 %; Eosinophils # (A) 0.13 X 10*3/uL (0.04-0.35); Eosinophils % (A) 2.6 %; HCT 41.5 % (37.2-46.3); HGB 12.9 g/dL (12.0-15.0); Immature Grans, Automated 0.2 %; Lymphocytes # (A) 0.93 X 10*3/uL (0.90-5.00); Lymphocytes % (A) 18.3 %; MCH 29.1 pg (27.0-32.0); MCHC 31.1 g/dL (32.0-37.0); MCV 93.7 fL (80.0-97.0); Mean Platelet Volume 11.7 fL (9.5-12.2); Monocytes # (A) 0.52 X 10*3/uL (0.20-1.00); Monocytes % (A) 10.3 %; NRBC Per 100 WBC 0 /100 WBCS (0.0-0.0); Neutrophils # (A) 3.46 X 10*3/uL (1.80-7.70); Neutrophils % (A) 68.2 %; Platelet Count 134 X 10*3/uL (140-440); RBC 4.43 X 10*6/uL (4.10-5.20); RDW 12.7 % (11.5-14.5); WBC 5.07 X 10*3/uL (4.50-10.00)
== END | disposition home or self-care (01) ==
LOC: LABWHC1 07:38
PROVIDERS: ATTEND Internal Medicine
DX: I10 Essential (primary) hypertension (principal); K50.90 Crohn's disease, unspecified, without complications
CPT/HCPCS: 36415; 80053; 80061; 82607; 82746; 83036; 83540; 83550; 84443; 85025

== ENCOUNTER → 2022-04-27 | Outpatient (CLI) | payer MEDICARE ==
[2022-04-27 14:43] LABS: ALT 15 U/L (8-44); AST 15 U/L (13-35); African American GFR (CKD) 80.6 (60.0-200.0); Albumin 4.1 g/dL (3.8-4.9); Albumin/Globulin Ratio 2.08 (1.60-3.17); Alkaline Phosphatase 72 U/L (41-126); BUN/Creat Ratio 21.66 Ratio (12.00-20.00); Blood Urea Nitrogen 18.5 mg/dL (9.0-27.0); Calcium 9.3 mg/dL (8.7-10.3); Carbon Dioxide 27.8 mmol/L (20.0-27.5); Chloride 105 mmol/L (96-109); Chol/HDL Ratio 2.83 Ratio; Glucose 127 mg/dL (70-110); LDL Cholesterol,Calculated 73.6 mg/dL (0.0-131.0); Non-African American GFR(CKD) 69.5 (60.0-200.0); Potassium 3.7 mmol/L (3.5-5.5); Sodium 141 mmol/L (135-145); Total Protein 6.1 g/dL (6.2-8.2)
== END | disposition home or self-care (01) ==
LOC: LABWHC1 07:10
PROVIDERS: ATTEND Internal Medicine Interventional Cardiology
DX: I10 Essential (primary) hypertension (principal); E78.2 Mixed hyperlipidemia
CPT/HCPCS: 36415; 80053; 80061

== ENCOUNTER → 2022-06-17 | Outpatient (CLI) | payer MEDICARE ==
[2022-06-17 18:39] LABS: Basophils # (A) 0.03 X 10*3/uL (0.00-0.10); Basophils % (A) 0.4 %; Eosinophils # (A) 0.21 X 10*3/uL (0.04-0.35); Eosinophils % (A) 2.7 %; HCT 41.1 % (37.2-46.3); HGB 13.1 g/dL (12.0-15.0); Immature Grans, Automated 0.3 %; Lymphocytes % (A) 18.2 %; MCH 28.4 pg (27.0-32.0); MCHC 31.9 g/dL (32.0-37.0); Mean Platelet Volume 11.7 fL (9.5-12.2); Monocytes # (A) 1.02 X 10*3/uL (0.20-1.00); Monocytes % (A) 13.3 %; NRBC Per 100 WBC 0 /100 WBCS (0.0-0.0); Neutrophils # (A) 5.01 X 10*3/uL (1.80-7.70); Neutrophils % (A) 65.1 %; Platelet Count 186 X 10*3/uL (140-440); RBC 4.62 X 10*6/uL (4.10-5.20); RDW 13.5 % (11.5-14.5); WBC 7.69 X 10*3/uL (4.50-10.00)
[2022-06-17 18:53] LABS: African American GFR (CKD) 76.5 (60.0-200.0); Albumin 4.4 g/dL (3.8-4.9); Albumin/Globulin Ratio 2.62 (1.60-3.17); Anion Gap 11.6 mmol/L (10.00-18.00); BUN/Creat Ratio 15.6 Ratio (12.00-20.00); Blood Urea Nitrogen 13.9 mg/dL (9.0-27.0); Calcium 9.8 mg/dL (8.7-10.3); Carbon Dioxide 24.1 mmol/L (20.0-27.5); Globulin 1.7 g/dL (1.6-3.3); Total Bilirubin 0.6 mg/dL (0.30-1.20); Total Protein 6.1 g/dL (6.2-8.2)
== END | disposition home or self-care (01) ==
LOC: LABWHC1 11:13
PROVIDERS: ATTEND Orthopaedic Surgery Adult Reconstructive Orthopaedic Surgery
DX: Z13.1 Encounter for screening for diabetes mellitus (principal); Z01.89 Encounter for other specified special examinations; M17.11 Unilateral primary osteoarthritis, right knee
CPT/HCPCS: 36415; 80053; 85025; 87070

== ENCOUNTER → 2022-09-25 | Outpatient (CLI) | payer MEDICARE ==
--- NOTE | 2022-09-25 13:31 | MR ---
EXAMINATION TYPE: MR lumbar spine wo con DATE OF EXAM: 09/25/2022 COMPARISON: None HISTORY: Unable to lift right leg. TECHNIQUE: Multiplanar, multisequence images of the lumbar spine were acquired without IV contrast. Findings: Lumbar vertebral segments are normal in height. There is a grade 1 anterolisthesis of L5 on S1 second didi to bilateral spondylolysis of L5. There is moderate degenerative disease at the L5-S1 disc where there is vacuum phenomena and distorti on secondary to the listhesis. There is moderate to severe degenerative disc disease at the T12/L1 le shine. The L1-L5 intervertebral discs are normal in height and signal intensity. There are no lumbar disc he rniations. The conus medullaris and cauda equina appear normal and there is no spinal stenosis. There is moderat e neural foraminal stenosis at the L4-5 and L5-S1 levels on the right and moderate neural foraminal s tenosis at the L5-S1 level on the left. The paraspinal soft tissues are unremarkable. IMPRESSION: 1. Grade 1 anterolisthesis of L5 on S1 secondary to bilateral spondylolysis of L5. 2. Moderate to severe degenerative disease at the T12/L1 level and moderate degenerative disease at t he L5-S1 level. 3. No lumbar disc herniation or spinal stenosis. 4. Neural foraminal encroachment at L4-5 and L5-S1 levels as described above, right greater than left .
== END | disposition home or self-care (01) ==
LOC: RADMRIMAIN 12:23
PROVIDERS: ATTEND Orthopaedic Surgery Adult Reconstructive Orthopaedic Surgery
DX: M43.17 Spondylolisthesis, lumbosacral region (principal); M51.37 Other intervertebral disc degeneration, lumbosacral region
CPT/HCPCS: 72148

== ENCOUNTER → 2022-10-08 | Outpatient (CLI) | payer MEDICARE ==
--- NOTE | 2022-10-08 16:59 | US ---
EXAMINATION TYPE: US thyroid st tissue head/neck DATE OF EXAM: 10/08/2022 COMPARISON: NONE CLINICAL INDICATION: Female, 67 years old with history of E04.2 Nontoxic multinodular goiter; f/u GLAND SIZE: Right Lobe: 5.4 x 2.0 x 2.9 cm Overall Parenchyma: heterogenous Left Lobe: 6.2 x 2.1 x 3.2 cm Overall Parenchyma: heterogeneous Isthmus Thickness: 0.4 cm NODULES RIGHT: # of nodules measured on right: 0 LEFT: # of nodules measured on left: 0 ISTHMUS: # of nodules measured in the isthmus: 0 Bilateral neck scanned, no evidence of lymphadenopathy. IMPRESSION: Thyroid gland enlargement with diffuse heterogeneity. Correlate with thyroid function testing.
== END | disposition home or self-care (01) ==
LOC: RADUSWWP 16:01
PROVIDERS: ATTEND Internal Medicine Endocrinology, Diabetes & Metabolism
DX: E04.2 Nontoxic multinodular goiter (principal); I10 Essential (primary) hypertension; K50.90 Crohn's disease, unspecified, without complications; E07.9 Disorder of thyroid, unspecified; E78.5 Hyperlipidemia, unspecified
CPT/HCPCS: 76536

== ENCOUNTER → 2023-05-30 | Outpatient (CLI) | payer MEDICARE ==
--- NOTE | 2023-05-31 21:21 | MM ---
Reason for Exam: Screening (asymptomatic). Last mammogram was performed 2 year(s) and 6 month(s) ago. Patient History: Menarche at age 14. First Full-Term at age 23. Left ovary removed at age 34. Right ovary removed at age 34. Hysterectomy at age 34. Postmenopausal. Other cancer. Patient used Estrogen for 2 years. Risk Values: Laura 5 year model risk: 1.7%. NCI Lifetime model risk: 5.1%. Prior Study Comparison: 07/28/2018 Bilateral Screening Mammogram, [facility]. 12/16/2020 Bilateral Screening Mammogram, [facility]. 01/07/2021 Right Diagnostic Mammogram, [facility]. Tissue Density: There are scattered fibroglandular densities. Findings: Analyzed By CAD. There is fluctuating chronic nodularity on the right. Findings suggest a benign etiology such as underlying cysts. There is no suspicious group of microcalcifications or new suspicious mass in either breast. Overall Assessment: Benign, BI-RAD 2 Management: Screening Mammogram of both breasts in 1 year. . Patient should continue monthly self-breast exams. A clinical breast exam by your physician is recommended on an annual basis. This exam should not preclude additional follow-up of suspicious palpable abnormalities. Note on Laura scores and lifetime risk: 1. A Laura score greater than 3% is considered moderate risk. If this is the case, consider specialist referral to assess eligibility for a risk reducing agent. 2. If overall lifetime risk for the development of breast cancer is 20% or higher, the patient may qualify for future screening with alternating mammogram and breast MRI. Electronically signed and approved by: Lenore Robins M.D. Radiologist
== END | disposition home or self-care (01) ==
LOC: RADMAMWWP 15:30
PROVIDERS: ATTEND Internal Medicine
DX: Z12.31 Encounter for screening mammogram for malignant neoplasm of breast (principal); Z78.0 Asymptomatic menopausal state
CPT/HCPCS: 77063; 77067

== ENCOUNTER → 2023-09-23 | Outpatient (CLI) | payer MEDICARE ==
[2023-09-23 16:27] LABS: T4, Free (Free Thyroxine) 1.28 ng/dL (0.80-1.80)
== END | disposition home or self-care (01) ==
LOC: LABWHC1 10:21
PROVIDERS: ATTEND Internal Medicine Endocrinology, Diabetes & Metabolism
DX: E04.2 Nontoxic multinodular goiter (principal)
CPT/HCPCS: 36415; 84439; 84443

== ENCOUNTER → 2023-09-29 | Outpatient (CLI) | payer MEDICARE ==
--- NOTE | 2023-09-29 16:28 | US ---
EXAMINATION TYPE: US thyroid st tissue head/neck DATE OF EXAM: 09/29/2023 COMPARISON: NONE CLINICAL INDICATION: Female, 68 years old with history of E04.2 NONTOXIC MULTINODULAR GOITER; goiter f/u GLAND SIZE: Right Lobe: 5.4x2.4x2.1 cm Overall Parenchyma: heterogeneous Left Lobe: 4.6x3.2x2.2 cm Overall Parenchyma: heterogeneous Isthmus Thickness: 0.6 cm NODULES RIGHT: # of nodules measured on right: 0 LEFT: # of nodules measured on left: 0 ISTHMUS: # of nodules measured in the isthmus: 0 Bilateral neck scanned, no evidence of lymphadenopathy. IMPRESSION: nodular thyroid gland with heterogenous echotexture, unable to discern any individual nodules 2017 ACR TI-RADS LEVEL: *Highest TI-RADS level nodule reported
== END | disposition home or self-care (01) ==
LOC: RADUSWWP 15:45
PROVIDERS: ATTEND Internal Medicine Endocrinology, Diabetes & Metabolism
DX: E04.2 Nontoxic multinodular goiter (principal)
CPT/HCPCS: 76536

== ENCOUNTER → 2023-10-26 | Outpatient (CLI) | payer MEDICARE ==
[2023-10-26 09:51] LABS: African American GFR (CKD) 87 (>60 ml/min/1.73 sqM); Blood Urea Nitrogen 17 mg/dL (7-17); Non-African American GFR(CKD) 75 (>60 ml/min/1.73 sqM)
[2023-10-26 10:02] LABS: ALT 26 U/L (4-34); AST 27 U/L (14-36); African American GFR (CKD) >90 (>60 ml/min/1.73 sqM); Albumin 4.2 g/dL (3.5-5.0); Albumin/Globulin Ratio 1.8; Alkaline Phosphatase 69 U/L (38-126); Anion Gap 6 mmol/L; Blood Urea Nitrogen 17 mg/dL (7-17); Calcium 9.7 mg/dL (8.4-10.2); Carbon Dioxide 29 mmol/L (22-30); Chloride 105 mmol/L (98-107); Globulin 2.4 g/dL; Glucose 145 mg/dL (74-99); Non-African American GFR(CKD) 81 (>60 ml/min/1.73 sqM); Sodium 140 mmol/L (137-145); Total Bilirubin 0.9 mg/dL (0.2-1.3); Total Protein 6.6 g/dL (6.3-8.2)
[2023-10-26 10:10] LABS: NT-Pro-B-Type Natriuretic Pept 185 pg/mL
[2023-10-26 10:13] LABS: Potassium 4.2 mmol/L (3.5-5.1)
[2023-10-26 15:25] LABS: Chol/HDL Ratio 2.64 Ratio; LDL Cholesterol,Calculated 69.8 mg/dL (0.0-131.0)
--- NOTE | 2023-10-31 09:38 | CT ---
EXAMINATION TYPE: CT facial bones w con CT DLP: 605.9 mGycm, Automated exposure control for dose reduction was used. DATE OF EXAM: 10/26/2023 11:26 AM COMPARISON: None. 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 Coronal, axial and sagittal reformatted images were also provided in soft tissue and bone windows and submitted for interpretation. Additional 3-D reformatted images were obtained on a [employer] workstation. . Contrast used:100 mL of Isovue 300 with IV Contrast, (none if empty) Oral contrast used: (none if empty) FINDINGS: The right parotid gland asymmetric with the left and demonstrates no acute or chronic abnormality. There is no evidence of fracture, subluxation, dislocation, or significant soft tissue swelling. The orbital contents are unremarkable. The temporal-mandibular joints appear symmetric. The visualized po rtion of the paranasal sinuses appear clear. Mastoid air cells are clear IMPRESSION: Unremarkable CT of the facial bones. Right parotid gland is normal. No abnormalities detected in the salivary glands.
== END | disposition home or self-care (01) ==
LOC: RADCTMAIN 08:31
PROVIDERS: ATTEND Internal Medicine
DX: K11.20 Sialoadenitis, unspecified (principal); R06.02 Shortness of breath
CPT/HCPCS: 83880; 80061; 80053; 82565; 84520; 70487; 36415; Q9967

== ENCOUNTER → 2024-03-23 | Day surgery (SDC) | payer MEDICARE ==
[~2024-03-23] MED LIST changes: -ALPRAZolam 0.25 MG TAB PO ONE; -ALPRAZolam 0.25 MG TAB PO PRN; -ALPRAZolam 0.5 MG TAB PO PRN; -ASPIRIN 325 MG TAB PO ONE; -ASPIRIN 325 MG TAB PO STA; -ATENOLOL 50 MG TAB PO SCH; -ATORVASTATIN 80 MG TAB PO STA; -CHOLECALCIFEROL 1,000 UNIT TAB PO SCH; -FAMOTIDINE 20 MG TAB PO SCH; -GABAPENTIN 300 MG CAP PO SCH; -HEPARIN SODIUM 1,000 UN/ML (10ML VL) ONE; -HYDROCHLOROTHIAZIDE 25 MG TAB PO SCH; +HYDROmorphone 0.5 MG/0.5 ML SYRINGE IVP PRN; -IOPAMIDOL-370 125ML BTL INJ ONE; +MIDAZOLAM 2 MG/2 ML VIAL IV PRN; +MIDAZOLAM 2 MG/2 ML VIAL ONE; -MULTIVITAMINS, THERA 1 EACH TAB PO SCH; +NALOXONE 0.4 MG/ML 1 ML VIAL IV PRN; -NITROGLYCERIN SL TABS 0.4 MG TAB SUBLINGUAL PRN; -NON FORMULARY DRUG (Losartan Potassium [Cozaar] 100 MG) PO SCH; -PANTOPRAZOLE 40 MG TABLET PO SCH; +PROPOFOL 10 MG/ML 20 ML VIAL IV ONE; +Pre Op ABX Message 1 EACH MISC MISCELLANE ONE; -RX INFO: IV CONTRAST WAS GIVEN 1 EACH MISC MISCELLANE PRN; -SODIUM CHLORIDE 0.9% 1,000 ML IV ONE; -SODIUM CHLORIDE 0.9% 1,000 ML IV SCH; -SODIUM CHLORIDE 0.9% 1,000 ML in EMPTY BAG 1 BAG IV ONE; -VERAPAMIL 2.5 MG/ML 2 ML AMP ONE; -VERAPAMIL SYRINGE (5 MG/10 ML) INTRAARTER ONE; +ceFAZolin 1 GM/50 ML BAG (PMX) ONE; -fentaNYL (PF) 50 MCG/ML 2 ML AMP IV ONE; -hydrALAZINE HCL 50 MG TAB PO SCH; -sulfaSALAzine 500 MG TAB PO SCH
--- NOTE | 2024-03-23 07:34 | P.GSHP ---
History of Present Illness H&P Date: 03/23/24 Chief Complaint: Left arm lipoma 69-year-old female here today for excision left arm lipoma. This was previously excised but came back. Increasing in size. Increasing pain. Pain radiates down the left arm at times. 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, 2 surgeries for ovarian cysts, ciro knee arthroscopy and then replaced Past Anesthesia/Blood Transfusion Reactions: Postoperative Nausea & Vomiting (PONV) Smoking Status: Never smoker - Past Family History Mother Family Medical History: No Reported History Medications and Allergies Home Medications Medication Instructions Recorded Confirmed Type Famotidine [Pepcid] 40 mg PO HS 08/21/18 03/19/24 History Krill Oil 500 mg PO DAILY 08/21/18 03/19/24 History Losartan Potassium [Cozaar] 100 mg PO DAILY 08/21/18 03/19/24 History Multivitamins, Thera [Multivitamin 1 tab PO DAILY 08/21/18 03/19/24 History (formulary)] Omeprazole [PriLOSEC] 20 mg PO AC-BRKFST 08/21/18 03/19/24 History atenoloL [Tenormin] 50 mg PO HS 08/21/18 03/19/24 History Gabapentin [Neurontin] 300 mg PO HS 08/02/19 03/19/24 History Ibuprofen [Advil] 200 mg PO Q6HR PRN 08/02/19 03/19/24 History hydrALAZINE HCL [Apresoline] 50 mg PO TID 08/02/19 03/19/24 History hydroCHLOROthiazide [Hydrodiuril] 25 mg PO DAILY 08/02/19 03/19/24 History sulfaSALAzine [Azulfidine] 1,000 mg PO TID 08/02/19 03/19/24 History Allergies Allergy/AdvReac Type Severity Reaction Status Date / Time Penicillins Allergy Rash/Hives Verified 03/19/24 15:18 procaine [From Novocain] Allergy Unknown Verified 03/19/24 15:18 bandaids Allergy ske peels Uncoded 03/19/24 15:18 off Surgical - Exam Physical exam: General: Well-developed, well-nourished HEENT: Normocephalic, sclerae nonicteric Abdomen: Nontender, nondistended Extremities: No edema, 6 x 5 cm left arm lipoma Neuro: Alert and oriented Assessment and Plan (1) Lipoma of arm Narrative/Plan: Will proceed with excision at this time Status: Acute Code(s): D17.20 - BENIGN LIPOMATOUS NEOPLASM OF SKIN, SUBCU OF UNSP LIMB SNOMED Code(s): 167302714
[2024-03-23] MEDS: IV FLUID CONTINUATION 1,000 ML IV ONE (08:09)
[2024-03-23] MEDS: HEPARIN SODIUM,PORCINE 5,000 UNIT/ML 1 ML VIAL SQ PRN (08:34)
[2024-03-23] MEDS: ONDANSETRON 4 MG/2 ML VIAL IVP ONE (08:34)
[2024-03-23] MEDS: DEXAMETHASONE SOD PHOSPHATE 4 MG/ML 1 ML VIAL IV ONE (08:34)
[2024-03-23] MEDS: ACETAMINOPHEN TAB 500 MG TAB PO PRN (08:34)
[2024-03-23] MEDS: LACTATED RINGERS 1,000 ML IV SCH (08:34)
[2024-03-23 08:52] LABS: HCT 42.3 % (34.0-46.0); HGB 13.5 gm/dL (11.4-16.0); MCH 27.7 pg (25.0-35.0); MCHC 31.8 g/dL (31.0-37.0); MCV 87.2 fL (80.0-100.0); Mean Platelet Volume 8.4; Platelet Count 229 k/uL (150-450); RBC 4.86 m/uL (3.80-5.40); RDW 13.9 % (11.5-15.5)
[2024-03-23] MEDS: LIDOCAINE 1%-EPI 1:100,000 20 ML VIAL SQ ONE (09:47)
[2024-03-23 10:12] VITALS: TEMP 97
--- NOTE | 2024-03-23 10:14 | P.OP ---
Date of Procedure: 03/23/24 Procedure(s) Performed: PREOPERATIVE DIAGNOSIS: Left posterior shoulder recurrent lipoma POSTOPERATIVE DIAGNOSIS: Same PROCEDURE: Excision left posterior shoulder lipoma 9 x 4 cm with intermediate closure SURGEON: Margy EBL: 5 cc ANESTHESIA: General COMPLICATIONS: None OPERATIVE PROCEDURE: Patient placed in the right decubitus position after general anesthesia achieved. The left posterior shoulder region was prepped and draped sterilely. The previous incision was reincised and lengthened slightly. The subcutaneous lipomatous mass was identified and able to be dissected fully using a combination of blunt dissection and cautery. This measured 9 x 4 x 3 cm. This was sent to pathology. This was not subfascial. The subcutaneous layers were closed using 3-0 Vicryl sutures and the skin using a running 4-0 Monocryl stitch. Skin glue and sterile dressings were applied. Length of intermediate closure 5 cm. DISPOSITION: Stable to recovery room
[2024-03-23 10:20] VITALS: RESP 16
[2024-03-23 11:19] VITALS: BP 113/67; PULSE 52
== END ==
LOC: OR 07:39
PROVIDERS: ATTEND Surgery
DX: D17.22 Benign lipomatous neoplasm of skin and subcutaneous tissue of left arm
CPT/HCPCS: 84132; 85027; 88304

== ENCOUNTER → 2024-07-19 | Day surgery (SDC) | payer MEDICARE ==
[2024-07-19 10:49] VITALS: BP 130/65; PULSE 55; RESP 12; TEMP 98.7
[2024-07-19] MEDS: GLUCAGON 1 MG/ML VIAL IM STA (11:03)
--- NOTE | 2024-07-20 18:51 | MR ---
EXAMINATION TYPE: MR Enterography DATE OF EXAM: 07/19/2024 12:06 PM COMPARISON: None. CLINICAL INDICATION: Female, 69 years old with history of K50.90 crohns, Right sided Abdominal pain, Crohn's disease, IV Contrast: 11.5 cc Gadobutrol CONTRAST: Standard multiplanar, multisequence imaging of the abdomen is performed without and with IV contrast, patient is injected with 11.5 mL intravenous Gadobutrol gadolinium contrast. Oral Breeza was given a s per enterography protocol. FINDINGS: LOWER CHEST: Cardiomegaly. Elevation of the right hemidiaphragm. ABDOMEN Bowel: Moderate size hiatal hernia. Significant amount of diverticula involving the descending and si gmoid colon. The appendix is within normal limits. The small bowel distention is inadequate proximall y. No definite evidence to suggest abnormal bowel wall thickening involving a small bowel or large b owel. Small bowel feces sign without dilated small bowel. No evidence of bowel obstruction. No evide nce for mucosal hyperenhancement, stricture or fistulous tract formation. Peritoneum: No evidence of pneumoperitoneum. Trace amount of free fluid within the anterior lower pe lvis bilaterally. Liver: Several bilobar T2 hyperintense thin wall cyst identified with some demonstrating thin interna l septation. Largest is within the right hepatic dome measuring up to 4.9 cm. Gallbladder and Bile ducts: The gallbladder is surgically absent. No biliary ductal dilatation. Pancreas: Unremarkable. Spleen: Unremarkable. Adrenal glands: Unremarkable. Kidneys: No hydronephrosis. Subcentimeter left renal cortical cysts. Additional right mid kidney chris ical 1.7 cm cyst. Right renal sinus cysts. Bladder: Unremarkable. Reproductive: Unremarkable. Vasculature: Unremarkable. No aortic aneurysm. Musculoskeletal: The osseous structures appear intact. Fluid is identified within the right iliopsoas bursa. Abdominal wall: Periumbilical ventral hernia containing fluid. IMPRESSION: 1. No evidence of bowel wall thickening or enhancement to suggest active bowel disease. 2. Small bowel feces sign without evidence for obstruction suggesting slow transit. 3. Distal colonic diverticulosis. [facility], , 07/20/2024 6:49 PM
== END ==
LOC: RADMRIMAIN 09:40
PROVIDERS: ATTEND Internal Medicine Gastroenterology
DX: K57.30 Diverticulosis of large intestine without perforation or abscess without bleeding (principal); K50.90 Crohn's disease, unspecified, without complications
CPT/HCPCS: 96372; 36415; 72197; 74183; J1610; A9585

== ENCOUNTER → 2024-12-24 | Outpatient (CLI) | payer MEDICARE ==
[2024-12-24 09:16] VITALS: BP 114/67; PULSE 54
--- NOTE | 2024-12-24 14:32 | P.PAINPG ---
Objective - Vital Signs Vital signs: Intake & Output 12/23/24 12/24/24 12/24/24 18:59 06:59 18:59 Weight 113.398 kg PQRS Measure Charge Sheet Comment: HISTORY OF PRESENT ILLNESS: A 69 yr old female as a referral from Dr Stover presents today w severe and chronic LBP > 1 yr secondary to radiculopathy, spondylosis and facet arthropathy without myelopathy for evaluation. Pt states pain level is provoked at 6 /10 in intensity, intermittent, localized in the R lumbar spine, predominantly axial, sharp in character w occasional shooting pain towards the R knee. Pain is provoked by lifting. Pain is alleviated by PT x 6 wks (lumbar, R knee) which ended in 2022, physician guided home stretches daily from Dr Stover since October 2024, medications, heat, repositioning and rest . Oswestry axial pain score at 26. PMH: OA, Melanoma, Angina, GERD, Hyperlipidemia, HTN, Crohn's Disease, DECLAN PSH: HH Repair, Cholecystectomy, Hysterectomy, R Shoulder Surgery (2023), L Forearm Surgery, Ovarian Cystectomy x2, BL Knee Arthroscopy, BL Knee Replacement, Colonoscopy SH: Negative x3 FH: Mo- No Reported History All: See list Medications include Zanaflex, Neurontin, Ibu REVIEW OF ORGAN SYSTEMS: CONSTITUTIONAL: No fevers or chills. No recent weight loss. NEUROLOGICAL: + numbness and tingling along the distal extremities. No seizure disorders or headaches. MUSCULOSKELETAL: + pain PSYCHIATRIC: Denies current depression or suicidal thoughts. Physical Examinations : Constitutional : Cooperative , not in acute distress . Neurologic : Cranial nerve II to XII intact. No focal neurological deficits. Psychiatric : alert & oriented x 3. Matching mood & appropriate affect. Judgment & insight intact. Musculoskeletal : Cervical Spine Motor strength in the deltoid and biceps: Normal right side. Normal Left side Motor strength biceps and the wrist extensors: Normal right side . Normal left side Motor strength in the triceps muscle: Normal right side. Normal left side Deep tendon reflexes: Normal at the biceps. Normal at Brachioradialis. Normal at triceps Vertebral body tenderness to deep palpation over Cervical facet loading test: positive bilaterally Spurling test: positive bilaterally Neck distraction test: positive bilaterally Harpreet sign: positive bilaterally Lumbar spine Motor strength lower extremities ,thigh and legs 5/5 Right side , 5/5 Left side Deep tendon reflexes : Normal Knee Jerk. Normal Ankle Jerk Vertebral body tenderness over L4 Galeano Test positive Lumbar facet Loading Test: positive Right / positive Left Range of motion of the lumbar spine Flexion 30 degrees, extension 10 degrees Straight Leg Raise test: Left/ Right positive at <40 degrees Sandip test: positive right / positive left. Severe tenderness over the Sacroiliac joint on the Right / Left sides Gaenslen test: positive bilaterally Seated flexion test: positive bilaterally. Sacral spine : Severe tenderness over the Sacroiliac joint: right side / left side Range of motion: Flexion of the lumbar spine <60 degrees Range of motion: Extension of the lumbar spine <20 degrees Gaenslen's Test positive Sandip test: positive right side / left side Thigh Thrust Test Sacral Thrust Test Imaging: MRI non contrast lumbar spine from 09/25/22 reviewed Assessment/ Plan : L5-S1 anterolisthesis, L4-S1 facet arthropathy Recommendation of R TFESI L4-L5, L5-S1 #1. Risks, benefits of procedure discussed and patient verbalized understanding. Admits to anti- coagulant use or medical history of diabetes. Protocol for discontinuation/ continuation of medications sherlyn procedure discussed. All questions answered. I have spent greater than 30 minutes on patient care today. Dr Will was available by phone for the evaluation of this patient. The time was used to review the medical records including relevant urine studies and Prescription history (MAPs), review of the available imaging, evaluation and examination of the patient, coordination of care with the medical staff and if applicable referring physicians, as well as creation of the medical record - Pain Location Right Knee Non-Pharmacological Interventions: Home Exercise, Physical Therapy Pharmacological Interventions: PRN Medication, Scheduled Medication PQRS Narrative: Smoking Status Never smoker Home Medications: Ambulatory Orders Famotidine [Pepcid] 40 mg PO HS 08/21/18 Losartan Potassium [Cozaar] 100 mg PO DAILY 08/21/18 Multivitamins, Thera [Multivitamin (formulary)] 1 tab PO DAILY 08/21/18 Omeprazole [PriLOSEC] 20 mg PO AC-BRKFST 08/21/18 atenoloL [Tenormin] 50 mg PO HS 08/21/18 Gabapentin [Neurontin] 300 mg PO HS 08/02/19 hydrALAZINE HCL [Apresoline] 50 mg PO TID 08/02/19 hydroCHLOROthiazide [Hydrodiuril] 25 mg PO DAILY 08/02/19 sulfaSALAzine [Azulfidine] 1,000 mg PO TID 08/02/19 Diclofenac Submicronized [Diclofenac] 35 mg PO 12/24/24 diazePAM [Valium] 10 mg PO DAILY 1 Days #1 tab 12/24/24 Controlled Substance Measures - Controlled Substance Measures Is patient prescribed a controlled substance at discharge?: Yes When asked, does pt state using other controlled substances?: No If prescribed controlled substance>3 days was MAPS reviewed?: Prescribed <3 Days
== END ==
LOC: PNWHC3 08:56
PROVIDERS: ATTEND Specialist
DX: M47.27 Other spondylosis with radiculopathy, lumbosacral region (principal); M43.17 Spondylolisthesis, lumbosacral region; M19.90 Unspecified osteoarthritis, unspecified site; Z88.0 Allergy status to penicillin; Z88.4 Allergy status to anesthetic agent; Z91.048 Other nonmedicinal substance allergy status
CPT/HCPCS: 99202